=== PATIENT | male | born 1960 | race African-American/Black ===

== ENCOUNTER 2018-03-05 17:16 | Inpatient (IN) | payer OTHER ==
[~2018-03-05] VITALS: Ht 188 cm; Wt 115.7 kg
[2018-03-05] MEDS ORDERED: KETOROLAC TROMETHAMINE 30 MG/ML VIAL IV STA (18:09)
--- NOTE | 2018-03-05 18:16 | NUR ---
RHYTHM STRIP AND EKG'S X 2 DONE AND TO
--- NOTE | 2018-03-05 18:18 | NUR ---
PT WITH PALPABLE PULSE RATE OF 50 WITH HR OF 104. PT WITH BIGEMENY, UNIFOCAL COUPLES, BBB WITH UNDERLYING RHYTHM SINUS INTIATED.
[2018-03-05] MEDS ORDERED: POTASSIUM CHLORIDE 20 MEQ TAB CR PO STA (18:32)
[2018-03-05] MEDS ORDERED: ONDANSETRON HCL INJ 2 MG/ML VIAL IV PRN ×2 (18:45→22:05)
[2018-03-05] MEDS: FAMOTIDINE 20 MG TAB PO SCH (18:45)
[2018-03-05] MEDS ORDERED: SODIUM CHLORIDE FLUSH 10 ML SYR INJ PRN (18:45)
[2018-03-05] MEDS: METOPROLOL TARTRATE 25 MG TAB PO SCH ×2 (18:58→22:22)
[2018-03-05] MEDS ORDERED: METOPROLOL TARTRATE INJ 1 MG/ML VIAL IV ONE (19:15)
--- NOTE | 2018-03-05 19:29 | Diagnostic Imaging Report ---
Exam: PA and lateral view of the chest Indication: Headache, cardiac dysrhythmia Comparison: None Findings: Mild subsegmental bibasilar atelectasis. No consolidations. No pleural effusions or pneumothorax. Normal appearance of the cardiomediastinal silhouette and bones. Impression: Normal appearance of the chest. Signed by: Dr. Sonali Polk M.D. on 03/05/2018 7:26 PM
[2018-03-05 20:45] VITALS: BP 199/126
[2018-03-05 20:50] VITALS: BP 199/126
[2018-03-06] VITALS: BP 206/128
[2018-03-06] MEDS: NIFEDIPINE CR 30 MG TAB PO SCH ×2 (00:23→09:38)
[2018-03-06] MEDS: HYDRALAZINE HCL 20 MG/ML VIAL IV PRN ×2 (00:25→12:52)
--- NOTE | 2018-03-06 00:30 | NUR ---
Patient's BP was of 206/128 and HR of 76. Denies any SOB, headache, vision changes, chest pain. No apparent distress noted. He is in bed in a semi-enrique position. Telemetry was Sinus. I called MD and explained situation. He gave me orders of Nifedipine and Hydralazine. Medications were administered as prescribed.
[2018-03-06 03:33] LABS: CREATINE KINASE MB 1.1 ng/mL (0-5.0)
[2018-03-06 04:00] VITALS: BP 156/85
[2018-03-06 05:22] LABS: BASOPHILS % 0.6 % (0.0-1.0); EOSINOPHILS # (AUTO) 0.1 (0.0-0.4); EOSINOPHILS % 1.2 % (0.0-6.0); HEMATOCRIT 39.3 % (38.2-49.6); HEMOGLOBIN 13.3 g/dL (14.0-18.0); LYMPHOCYTES # (AUTO) 1.1 (1.0-3.2); LYMPHOCYTES % 21.3 % (18.0-39.1); MEAN CORPUSCULAR HEMOGLOBIN 30.7 pg (28-32); MEAN CORPUSCULAR HGB CONC 33.8 g/dL (31-35); MEAN CORPUSCULAR VOLUME 90.8 fL (81-99); MONOCYTES # (AUTO) 0.7 (0.2-0.8); MONOCYTES % 14.9 % (4.4-11.3); NEUTROPHILS # (AUTO) 3.1 (2.1-6.9); NEUTROPHILS % 61.4 % (38.7-80.0); PLATELET COUNT 258 x10e3/uL (140-360); RED BLOOD COUNT 4.33 x10e6/uL (4.3-5.7); RED CELL DISTRIBUTION WIDTH 13.7 % (11.7-14.4)
[2018-03-06 05:43] LABS: ANION GAP 14.2 mmol/L (8-16); BLOOD UREA NITROGEN 19 mg/dL (7-26); BUN/CREATININE RATIO 18 (6-25); CALCIUM 9.1 mg/dL (8.4-10.2); CARBON DIOXIDE 21 mmol/L (22-29); CHLORIDE 102 mmol/L (98-107); CHOL/HDL RATIO 4.8 (3.9-4.7); CHOLESTEROL 203 MD/DL (0-199); CREATININE, SERUM 1.08 mg/dL (0.72-1.25); EST GLOMERULAR FILTRATION RATE > 60 ML/MIN (60-); GLUCOSE 98 mg/dL (74-118); HDL CHOLESTEROL 42 MG/DL (40-60); LDL CHOLESTEROL 145 MG/DL (60-130); POTASSIUM 3.2 mmol/L (3.5-5.1); SODIUM 134 mmol/L (136-145); TRIGLYCERIDES 82 MG/DL (0-149)
[2018-03-06] MEDS: FAMOTIDINE 20 MG TAB PO SCH ×2 (06:25→18:05)
[2018-03-06] MEDS: METOPROLOL TARTRATE 25 MG TAB PO SCH ×2 (06:25→18:05)
[2018-03-06] MEDS ORDERED: POTASSIUM CHLORIDE 20 MEQ TAB CR PO STA (08:58)
[2018-03-06] MEDS ORDERED: IRBESARTAN 150 MG TAB PO SCH (09:00)
[2018-03-06] MEDS ORDERED: SODIUM CHLORIDE 0.9% 1000ML 1,000 ML IV SCH (09:15)
[2018-03-06] MEDS: POTASSIUM CHLORIDE 10MEQ EA PO SCH (09:38)
[2018-03-06] MEDS: ASPIRIN 81 MG ENTERIC COATED PO SCH (09:39)
--- NOTE | 2018-03-06 09:49 | Consultation ---
DATE OF CONSULTATION: March 06, 2018 CARDIOLOGY CONSULTATION REASON FOR CONSULTATION: Arrhythmia. CONSULTING PHYSICIAN: Dr. Roberts HPI: This is a pleasant 57-year-old male that presented with headaches. According to the patient, he was visiting from out of town when he started having gradual onset of headache that got worse that he decided to come in for further evaluation. He stated that he has a history of high blood pressure. Had been on blood pressure medication, and has been compliant with his medications. He also stated he has high cholesterol and was put on cholesterol medications, which he stopped times 1 month because it was making him feel bad. He denied any chest pain, any palpitations, any shortness of breath, any diaphoresis, any nausea or vomiting. Troponin was negative. EKG showed normal sinus rhythm with PVCs. PAST MEDICAL HISTORY: Hypertension and hyperlipidemia. PAST SURGICAL HISTORY: None. FAMILY HISTORY: Positive for hypertension. SOCIAL HISTORY: No smoking. No drinking. He lives at home with family. MEDICATIONS: He was on irbesartan with hydrochlorothiazide and metoprolol. ALLERGIES: HE IS NOT ALLERGIC TO ANY MEDICATION. REVIEW OF SYSTEMS: Negative except those mentioned above. Positive for arrhythmia, PVCs and headache. PHYSICAL EXAMINATION VITAL SIGNS: Temperature 99, heart rate 89, blood pressure 150/85, respirations 20, oxygen saturation 95% on room air. GENERAL: He is awake, alert and oriented times 3. HEENT: Mucous membrane moist. NECK: Supple. LUNGS: Bilaterally clear to auscultation. CARDIOVASCULAR: S1 and S2 present. ABDOMEN: Soft. NEUROLOGICAL: Intact. EXTREMITIES: With no edema. LABS: Sodium 134, potassium 3.2, chloride 102, CO2 21, BUN 19, creatinine 1.08, glucose 98. White blood cells 4.98, hemoglobin 13.3, hematocrit 39.3, and platelets 258,000. CK 480. IMPRESSION 1. Hypokalemia. 2. Hyponatremia. 3. Elevated CK. 4. Headaches. 5. Premature ventricular contraction. 6. Hyperlipidemia. ASSESSMENT AND PLAN 1. Will go ahead and replace potassium. 2. Get an echocardiogram to assess the LV and the valve function. 3. Potassium has been replaced. 4. Due to the elevated CK, will give him some IV fluids. 5. Will check his TSH. Continue his home medications. Further cardiac workup pending clinical course. Thank you for this consultation. DICTATED BY BROOKE LORENZ NP Job#: [id number] YOLI
[2018-03-06] MEDS: IRBESARTAN 150 MG TAB PO SCH (10:54)
[2018-03-06] MEDS: SODIUM CHLORIDE 0.9% 1000ML 1,000 ML IV SCH ×2 (10:54→22:59)
--- NOTE | 2018-03-06 11:40 | History and Physical ---
CHIEF COMPLAINT: Headache. HPI: This is a 57-year-old male with past medical history of hypertension, who is currently not taking any medications at home, who has been to the outside ER with complaints of headache ongoing for the last several days. Patient reports that he was driving from [employer] with some family began to have severe migraine headache in the frontal aspect of his head. First, he thought that he needed some sleep, so he napped with no relief. He took significant amount of aspirin with no relief. He decided to go to an outside ER. He started to have some questionable arrhythmia and was brought in for further evaluation by Cardiology. Patient seen and evaluated at bedside on the medical floor, currently denies any headache and Cardiology is evaluating patient right now. REVIEW OF SYSTEMS: Pertinent positive for headaches, not feeling well. Pertinent negative: Denies any chest pain, palpitations, nausea, vomiting, diarrhea, dysuria, hematuria, frequency, urgency, lightheadedness, dizziness, abdominal pain, headache, shortness of breath, cough, congestion, fever, . The rest of 14-point review of systems have been reviewed with patient and are negative. ALLERGIES: NO KNOWN DRUG ALLERGIES. HOME MEDICATIONS: None. PAST MEDICAL HISTORY: Reports none. SURGICAL HISTORY: Reports none. FAMILY HISTORY: Hypertension, diabetes. SOCIAL HISTORY: No drugs, no alcohol. Does not smoke. Good social support. VITAL SIGNS: Temperature 97.9, pulse 86, respiratory rate is 20. His blood pressure when he came in was 206/128 and his last reading was 156/85 after nifedipine XL was given. LAB FINDINGS: White count 4.9, hemoglobin 13, hematocrit 39, platelets of 258,000. Chemistry, sodium 134 potassium 3.2, chloride 102, bicarb 21, anion gap of 14, BUN is 19, creatinine is 1, glucose is 98, calcium 9.1, magnesium 2.2. Troponins were negative. His LDL was 145. MICROBIOLOGY: None. IMAGING STUDIES: Chest x-ray, normal appearance of the chest. PHYSICAL EXAM GENERAL: In no acute distress, alert, oriented x3, cooperative on examination. HEENT: Head normocephalic and atraumatic. Eyes: Pupils equal, round and reactive to light bilaterally. Extraocular movements intact bilaterally. NECK: Supple. Good range of motion. Throat with no evidence of any erythema or exudates in the posterior pharynx. Has poor dentition. PULMONARY: Clear to auscultation. No wheezing, no rales, no rhonchi, no crackles appreciated. CARDIOVASCULAR: Positive S1 and S2. No murmurs, rubs or gallops appreciated. ABDOMEN: Soft, nondistended and nontender to palpation. Bowel sounds present. MUSCULOSKELETAL: Strength is 5/5 throughout. No evidence of any muscle deficit on examination. No weakness appreciated. NEUROLOGICAL: Cranial nerves II-XII are grossly intact. No evidence of any neurological deficits on exam. SKIN: Intact. Warm to touch. Good cap refill. PSYCHIATRIC: Normal affect and mood. EXTREMITIES: No edema. Good range of motion throughout. IMPRESSIONS 1. Headache, concerning for undergoing migraine. 2. Premature ventricular contractions, seen on electrocardiogram. 3. Low-grade fever. 4. Hypertensive urgency. 5. Hyperlipidemia. 6. Medical noncompliance. PLAN: At this time, cardiology consulted for dysrhythmia that was seen on EKG, possibly PVCs from hypokalemia. Potassium was replaced. He did have low-grade temperature of 100.5. He has no symptoms at this time. His white count was normal. Will continue to monitor this very closely. It could be just a viral etiology or could be a false reading temperature that was read. In relation to his hypertension, we are going to continue with nifedipine XL. His blood pressure on that regimen. In relation to his hyperlipidemia, he will start on Lipitor. He is Lovenox for DVT prophylaxis. He is not ready to be discharged today, though I know he is eager to be leaving. At this time, his potassium is low, which I will replace and I must his blood pressure medications accordingly plus he had a fever of 100.5, which I must monitor very closely. Job#: [id number] CQ
[2018-03-06 12:06] VITALS: BP 177/117
[2018-03-06 12:20] VITALS: BP 177/117
[2018-03-06 16:36] VITALS: BP 163/107
--- NOTE | 2018-03-06 18:27 | Diagnostic Imaging Report ---
CT BRAIN WO HISTORY: Headache, increased blood pressure COMPARISON: None. TECHNIQUE: Noncontrast axial scans were obtained from skull base to the vertex. Coronal and sagittal reconstructions obtained from the axial data. One or more of the following dose reduction techniques were used: Automated exposure control, adjustment of the mA and/or kV according to patient size, and/or utilization of iterative reconstruction technique. DISCUSSION: Scalp/Skull: Unremarkable. Brain sulci: Appropriate for patient's age. Ventricles: Normal in size and configuration. No hydrocephalus. Extra-axial spaces: No masses or fluid collections. Parenchyma: There are mild scattered hypodensities in the bifrontal subcortical and deep white matter. Otherwise, no masses, hemorrhage, or large vascular territory acute infarct. Dural sinuses: No abnormal densities. Sellar/Suprasellar region: Intact. Skull base: Intact. Incidental findings: Mild carotid siphon calcifications are present IMPRESSION: 1. Nonspecific mild scattered hypodensities in the bifrontal subcortical and deep white matter may be due to mild chronic microvascular ischemic change and/or vasogenic edema. 2. Otherwise, no acute intracranial abnormalities. Further evaluation with brain MRI is recommended. Signed by: Dr. Evin Lemon M.D. on 03/06/2018 6:24 PM
--- NOTE | 2018-03-06 18:52 | NUR ---
pt in bed denies any pain or discomfort, no s/s of resp distress noted
--- NOTE | 2018-03-06 19:00 | NUR ---
Completed bedside rounds with morning nurse. Pt alert to name. Lying in bed 45 degrees. Denies pain at this time. No acute distress noted.
[2018-03-06 20:00] VITALS: BP 159/98
[2018-03-06] MEDS ORDERED: ATORVASTATIN 20 MG TAB PO SCH (21:00)
[2018-03-07] VITALS (7 sets, daily range): BP systolic 155–195; BP diastolic 90–123
[2018-03-07 05:30] LABS: BASOPHILS % 0.7 % (0.0-1.0); EOSINOPHILS # (AUTO) 0.1 (0.0-0.4); EOSINOPHILS % 2.2 % (0.0-6.0); HEMATOCRIT 40.8 % (38.2-49.6); HEMOGLOBIN 13.6 g/dL (14.0-18.0); LYMPHOCYTES # (AUTO) 1.4 (1.0-3.2); LYMPHOCYTES % 30.1 % (18.0-39.1); MEAN CORPUSCULAR HEMOGLOBIN 30.8 pg (28-32); MEAN CORPUSCULAR HGB CONC 33.3 g/dL (31-35); MEAN CORPUSCULAR VOLUME 92.5 fL (81-99); MONOCYTES # (AUTO) 0.7 (0.2-0.8); NEUTROPHILS # (AUTO) 2.4 (2.1-6.9); NEUTROPHILS % 51.8 % (38.7-80.0); PLATELET COUNT 254 x10e3/uL (140-360); RED BLOOD COUNT 4.41 x10e6/uL (4.3-5.7); RED CELL DISTRIBUTION WIDTH 13.8 % (11.7-14.4)
[2018-03-07 06:00] LABS: ANION GAP 13.6 mmol/L (8-16); BLOOD UREA NITROGEN 15 mg/dL (7-26); BUN/CREATININE RATIO 17 (6-25); CALCIUM 8.5 mg/dL (8.4-10.2); CARBON DIOXIDE 22 mmol/L (22-29); CHLORIDE 107 mmol/L (98-107); CREATININE, SERUM 0.88 mg/dL (0.72-1.25); EST GLOMERULAR FILTRATION RATE > 60 ML/MIN (60-); GLUCOSE 89 mg/dL (74-118); POTASSIUM 3.6 mmol/L (3.5-5.1); SODIUM 139 mmol/L (136-145)
[2018-03-07] MEDS: METOPROLOL TARTRATE 25 MG TAB PO SCH ×2 (06:34→18:38)
[2018-03-07] MEDS: FAMOTIDINE 20 MG TAB PO SCH ×2 (06:34→18:38)
[2018-03-07] MEDS: SODIUM CHLORIDE 0.9% 1000ML 1,000 ML IV SCH (07:21)
[2018-03-07] MEDS: ASPIRIN 81 MG ENTERIC COATED PO SCH (08:50)
[2018-03-07] MEDS: NIFEDIPINE CR 30 MG TAB PO SCH ×2 (08:50→16:36)
[2018-03-07] MEDS: HYDRALAZINE HCL 20 MG/ML VIAL IV PRN ×3 (08:50→20:45)
[2018-03-07] MEDS: POTASSIUM CHLORIDE 10MEQ EA PO SCH (08:50)
[2018-03-07] MEDS: IRBESARTAN 150 MG TAB PO SCH (08:50)
[2018-03-07] MEDS ORDERED: ASPIRIN 325 MG TAB PO SCH (09:00)
[2018-03-07] MEDS ORDERED: IRBESARTAN 150 MG TAB PO SCH (09:00)
--- NOTE | 2018-03-07 11:45 | NUR ---
SOCIAL WORK INITIAL ASSESSMENT [employer] Designer to bedside to discuss plan of care with patient/family. CM/SW role and care transitions discussed. Anticipated discharge plan discussed along with duration of care. CM/SW discussed patients right to make decisions in care. CM/SW work hours given. Patient lives: IN OWN HOUSE WITH FAMILY Admit/Transfer: VIA HOME POA/Emergency contact: BROTHER RICH JOHN [phone] Current/Previous Home Health: NONE PCP/Follow-up Care: MIKHAIL JAEGER Current/Previous DME: NONE Other Services: NONE Employment Status: COMMUNITY ENGAGEMENT MANAGER Areas of Concerns: NONE Referral Needs: NONE Education Needs: NONE IMM/OROZCO given and signed (if applicable): NA Goal for discharge: RETURN HOME INDEPENDENTLY CM/SW left business card at the bedside with contact information. Name and number was also written on the patients whiteboard. Patient verbalized understanding of discussion. CM will follow-up with ongoing discharge and transition of care needs.
--- NOTE | 2018-03-07 12:01 | Progress Note ---
DATE: March 07, 2018 MEDICINE PROGRESS NOTE SUBJECTIVE: Patient is doing well today with no other issues. His blood pressure is still elevated. CT head was found to be slightly abnormal, which MRI of the brain has been ordered. PHYSICAL EXAMINATION VITAL SIGNS: Temperature is 97.3, pulse 69, respiratory rate is 19, blood pressure is last one 175/104, pulse ox 95% on room air. GENERAL: Not in acute distress. Alert and oriented x3. Cooperative on examination. HEENT: Head is normocephalic and atraumatic. Eyes: Pupils are equal, round and reactive to light bilaterally. Extraocular movements intact bilaterally. Throat; no evidence of any erythema or exudates in the posterior pharynx. Has poor dentition. NECK: Supple. Good range of motion. PULMONARY: Clear to auscultation bilaterally. No wheezing. No rales. No rhonchi. No crackles appreciated. CARDIOVASCULAR: Positive S1 and S2. No murmurs, rubs, or gallops appreciated. ABDOMEN: Soft, nondistended, nontender to palpation. Bowel sounds present. MUSCULOSKELETAL: Strength is 5/5 throughout. No evidence of any muscle deficit on examination. No weakness appreciated. NEUROLOGICAL: Cranial nerves II through XII are grossly intact. No evidence of any neurological deficits on exam. SKIN: Intact. Warm to touch. Good cap refill. PSYCHIATRIC: Normal affect and mood. EXTREMITIES: No edema. Good range of motion throughout. LAB FINDINGS: Show white count 4.5, hemoglobin 13.6, hematocrit is 40.8, platelets of 254. Chemistry: Sodium 139, potassium 3.6, chloride 107, bicarb 23, anion gap of 13, BUN 15, creatinine is 0.88, glucose is 89, calcium is 8.5. Troponins were negative. His TSH is 0.34. LDL is 145. MICROBIOLOGY: None. IMAGING STUDIES: CT brain showed nonsignificant mild scattered hypodensity within the bifrontal subcortical and deep white matter may be due to mild chronic microvascular ischemic changes versus iatrogenic edema. Otherwise, no acute intracranial abnormality. Chest x-ray was found to be normal. IMPRESSION 1. Headaches concerning for underlying migraine. 2. Premature ventricular contractions seen on EKG. 3. Low-grade fever. 4. Hypertensive emergency. 5. Hyperlipidemia. 6. Medical noncompliance. PLAN: At this time, I will go ahead and get an MRI of the brain as the CT of the brain was performed with results above. MRI of the brain was correlated today. His blood pressure is still elevated, which I will adjust the medication to correlate. His cultures have been negative. Labs found to be normal at this time. Cardiology adjusted the medications accordingly. He may be able to be discharged home later today once MRI of the brain is back and it is negative. All scripts have been placed and see the chart. I also discussed this case with the nursing staff who taking care of this patient. Job#: [id number] ELSA
--- NOTE | 2018-03-07 13:40 | NUR ---
Notified radiology department that MRI report is still not AV for viewing.
--- NOTE | 2018-03-07 14:16 | Diagnostic Imaging Report ---
MRI BRAIN WO HISTORY: Headache COMPARISON: Head CT 03/06/2018 TECHNIQUE: Sagittal T2, axial T2, axial T1, axial T2/FLAIR, axial gradient echo (or susceptibility weighted), coronal T2/FLAIR, and axial diffusion weighted MR images of the brain were obtained without contrast. Motion and noise artifacts obscure some details. DISCUSSION: Scalp/bone marrow: Unremarkable. Brain sulci: Appropriate for patient's age. Ventricles: Normal in size and configuration. No hydrocephalus. Extra-axial spaces: No masses or fluid collections. Parenchyma: Scattered T2/FLAIR hyperintense foci throughout the bilateral deep white matter are likely chronic microvascular ischemic changes. These foci are in a somewhat linear pattern. Otherwise, no mass, hemorrhage, or acute vascular insults. Vessels: Normal flow voids in major arteries and veins. Sellar/Suprasellar region: No abnormalities. Craniocervical junction: No abnormalities. Incidental findings: Both ocular lenses are thinned. There is a retention cyst in the left maxillary sinus. Mild bilateral ethmoid air cell mucosal thickening is present. IMPRESSION: 1. No acute intracranial abnormalities. 2. Scattered T2/FLAIR hyperintense foci in the bilateral deep white matter may be due to mild chronic microvascular ischemic change and/or chronic watershed ischemia. Signed by: Dr. Evin Lemon M.D. on 03/07/2018 2:13 PM
--- NOTE | 2018-03-07 14:20 | NUR ---
Manual BP 220/130, PRN Hydralazine given. Will notify
--- NOTE | 2018-03-07 14:27 | NUR ---
MRI result is back. Patient's BP is 220/130, taken manually twice. Paged Dr. Hudson to notify him of elevated BP and the MRI result. Awaiting call back.
--- NOTE | 2018-03-07 14:36 | NUR ---
Dr. Hogue is here making rounds, also notified her of patient's elevated BP 220/130. New order received.
[2018-03-07] MEDS ORDERED: CLONIDINE HCL 0.3MG/24 HR PATCH TOP ONE (14:45)
[2018-03-07] MEDS ORDERED: CLONIDINE HCL 0.2 MG/24 HR 1 EA PATCH TOP SCH (15:00)
[2018-03-07] MEDS ORDERED: CLONIDINE HCL 0.1 MG TAB PO ONE (15:00)
[2018-03-07] MEDS ORDERED: CLONIDINE HCL 0.2 MG TAB PO ONE (15:00)
--- NOTE | 2018-03-07 16:10 | NUR ---
Spoke to Dr. Hudson and notified him of MRI result and patient's elevated BP 220/130. Most recent BP is 195/105. Patient is not clear for discharge, new consult received for neurology along with change in BP medications.
--- NOTE | 2018-03-07 16:25 | NUR ---
Notified Dr. Atwood about consult.
--- NOTE | 2018-03-07 16:30 | NUR ---
Updated patient on POC at this time. Patient is considering leaving AMA, has not yet decided at this time.
--- NOTE | 2018-03-07 19:16 | NUR ---
PT IS RESTING IN BED. NO RESPIRATORY DISTRESS NOTED, BED IN THE LOWEST POSITION, LOCKED, AND CALL LIGHT WITHIN REACH. WILL CONTINUE TO MONITOR.
[2018-03-07] MEDS ORDERED: ATORVASTATIN 40 MG TAB PO SCH (21:00)
[2018-03-07] MEDS ORDERED: SIMVASTATIN 40 MG TAB PO SCH (21:00)
[2018-03-08] VITALS (7 sets, daily range): BP systolic 140–159; BP diastolic 87–94
[2018-03-08] MEDS: FAMOTIDINE 20 MG TAB PO SCH (06:10)
[2018-03-08] MEDS: METOPROLOL TARTRATE 25 MG TAB PO SCH ×2 (06:10→08:07)
--- NOTE | 2018-03-08 07:05 | NUR ---
received pt lying in bed with eyes open, TV on. denies pain. call light within reach. bed in low and locked position.
[2018-03-08] MEDS: NIFEDIPINE CR 30 MG TAB PO SCH ×2 (08:07→15:11)
[2018-03-08] MEDS: ASPIRIN 81 MG ENTERIC COATED PO SCH (08:07)
[2018-03-08] MEDS: IRBESARTAN 150 MG TAB PO SCH (08:07)
[2018-03-08] MEDS: POTASSIUM CHLORIDE 10MEQ EA PO SCH (08:08)
--- NOTE | 2018-03-08 10:57 | Discharge Summary ---
FINAL DISCHARGE DIAGNOSES 1. Headaches likely due to microvascular changes in the brain seen on MRI due to hypertension changes. 2. Premature ventricular contractions seen on electrocardiogram. Cleared by cardiology. 3. Low-grade fever. 4. Hypertension urgency. 5. Hyperlipidemia. 6. Medical noncompliance. 7. Obesity. CONSULTANTS: Neurology and cardiology. VITAL SIGNS: Temperature is 97.1, pulse is 68, respiratory rate is 20, blood pressure is 152/91, pulse ox 96% on room air. LABS: White count 4.5, hemoglobin 13.6, hematocrit is 41, and platelets 254,000. Chemistry: Sodium 139, potassium 3.6, chloride 107, bicarb 22, anion gap of 13, BUN 15, creatinine 0.88, glucose is 89. Calcium is 8.5. TSH is 0.3. His LDL is 145. Troponins were all negative. MICROBIOLOGY: None. IMAGING STUDIES: Chest x-ray was negative. CT of brain showed nonspecific mild scattered densities in the bifrontal, subcortical and deep white matter may be due to mild chronic microvascular ischemic change versus vasogenic edema. MRI of the brain with no intracranial abnormalities. Scattered T2 flare and hypertensive fossa in the deep white matter maybe due mild chronic microvascular ischemic change or chronic watershed ischemia. HOSPITAL COURSE: A 57-year-old male who came in from outside ER with complaints of headache and questionable arrhythmia seen on EKG. Cardiology was consulted. It was felt that the patient likely had PVCs due to electrolyte abnormalities. Patient's electrolytes were replaced accordingly. There was no more evidence of any PVCs. The patient was cleared by cardiology for discharge. Patient's blood pressure was extremely elevated while in the hospital and treated for hypertensive urgency. Medications were adjusted accordingly, as well as in addition to his regimen of nifedipine XL and clonidine patch. On discharge, blood pressure is much improved. He was also complaining of headache, and that was the reason for his admission from the outside ER. CT of the brain found to be abnormal with results above. MRI was performed and concerning for chronic microvascular ischemic changes likely Due to hypertension changes. Neurology was consulted and felt it was the same and was cleared for discharge home. The patient has been cleared for discharge home by all consultants. Medications were adjusted accordingly. His blood pressure is much improved. On the day of discharge, vital signs stable, labs remained stable. The patient was seen and evaluated and voiced no other complaints. The patient verbalized understanding and agrees with plan of care. Follow up as an outpatient with the primary care physician in 1 week. Monitor his blood pressure accordingly. MEDICATIONS: See med reconciliation form includin. Metoprolol 50 mg 1 tab p.o. q.12 h. 2. 300 mg one p.o. daily. 3. Nifedipine XL 60 mg 1 tab p.o. daily. 4. Clonidine patch 0.3 mg 1 patch every week. DISPOSITION: Home. CONDITION: Stable. DIET: Heart-healthy. In the event of any worsening symptoms, he was advised to come to the ED for further evaluation. Discharge summary took greater than 35 minutes. SILVERIO AGUILAR MD Job#: [id number] YOLI
--- NOTE | 2018-03-08 12:55 | NUR ---
patient inquring about time neurology will come see him, unable to give him an exact time and this was explained to patient. will page neurologist to attempt to obtain ETA.
--- NOTE | 2018-03-08 12:56 | NUR ---
spoke to and she states will attempt to arrive in facility in approximately 2 hours as she does not foresee arriving earlier than this. Will notify patient.
--- NOTE | 2018-03-08 14:00 | NUR ---
per - cardiology, pt july d/c home.
--- NOTE | 2018-03-08 14:08 | NUR ---
DISCUSSED PT IN ROUNDS. STATES PT WILL ADVANCE TO A FULL LIQUID DIET. BEDSIDE NURSE STATES IF PT TOLERATES HIS FULL LIQUID DIET HE MAY ADVANCE TO GI SOFT. PT MAY DC HOME THIS PM. MET W THE PT AT THE BEDSIDE. STATES HE WAS READY FOR DC. WILL CALL CAB TO GET HIM TO HIS CAR. PT STATES HE HAS TO TRAVEL TO [facility] TODAY. DISCUSSED NEEDING TO SEE NEUROLOGY PRIOR TO DC'ING. PT VERBALIZED UNDERSTANDING.
--- NOTE | 2018-03-08 14:43 | NUR ---
per , pt may d/c and f/u with neurology in [place] hometown if continuing to insist on d/c today. spoke to pt and he states he does not want to keep waiting and "will see a doctor over there."
--- NOTE | 2018-03-08 14:45 | NUR ---
made aware of pt insisting on d/c home today and notified MD of converstation with . agreed for pt to d/c home, RX were left in chart. Cm also notified of pt to d/c home today.
--- NOTE | 2018-03-08 15:42 | NUR ---
PIV removed with tip intact. denies pain. color television console monitor removed. all personal belongings, RX and d/c instructions in hand at time of d/c. pt chose to ambulate to front lobby entrance where "cousin" awaited to picker tender helper in private auto. safely transferred into auto.
== END 2018-03-08 15:40 | disposition home or self-care (01) | DRG 309 ==
LOC: FSED 17:16 → ERHOLD 18:43 → MED/SURG3 20:56 → OBSVTOIN 03-07 09:40
PROVIDERS: ADMIT Internal Medicine; ATTEND Internal Medicine
DX: I49.3 Ventricular premature depolarization (principal); E87.1 Hypo-osmolality and hyponatremia; I16.0 Hypertensive urgency; E78.5 Hyperlipidemia, unspecified; Z91.19 Patient's noncompliance with other medical treatment and regimen; E87.6 Hypokalemia; R51 Headache; E66.9 Obesity, unspecified; Z68.32 Body mass index [BMI] 32.0-32.9, adult; R00.8 Other abnormalities of heart beat
CPT/HCPCS: 36415; 70450; 70551; 71046; 80048; 80053; 80061; 82550; 82553; 83735; 84443; 84484; 85025; 93005; 93306; 99284; G0378; J0360; J1885; J7030